=== PATIENT | female | born 1945 | race Caucasian/White ===

== ENCOUNTER 2016-12-19 07:51 | Inpatient (IN) | payer MEDICARE, BC ==
--- NOTE | ~2016-12-19 | HP ---
History And Physical [place] [id number] [facility] [place]. [address] NAME: FATIMAH DURAND : 41 STATUS : ADM Katia PAT#: [id number] AGE: 71 ADM/REG DATE : 12/19/16 MR#: [id number] REPORT SERV DATE: 12/19/16 DICTATED BY: UMER GARRETT DATE: 12/19/16 REPORT STATUS : Draft TRANSCRIBED BY: MODL DATE: 12/19/16 DATE OF ADMISSION: 12/19/2016 ADMISSION DIAGNOSIS: Unstable angina. HISTORY OF PRESENT ILLNESS: Ms. Durand is a very pleasant 71-year-old female, who presented to the emergency room this morning for evaluation of chest discomfort and diaphoresis. She has a cardiovascular history notable for coronary heart disease with prior CABG in 2003, performed by Dr. Connelly. She has been under the care of Dr. Clay Toussaint and has had subsequent heart catheterizations, but no prior stents. Her last heart catheterization was in 2013, at which time, all grafts were demonstrated to be patent with severe [place] coronary artery disease that was not amenable to revascularization. She also has a history of aortic stenosis, previously assessed to be moderate in severity. She had actually made an appointment to transition her care to the [facility] after her previous Cardiology left his practice and was awaiting her initial visit later this month. She was in her usual state of health until early this morning when she woke up with tightness in her chest, severe diaphoresis, and shortness of breath. She described as a pressure in the center of her chest and it involved her left arm. She presented to the ER where nitroglycerin relieved her pain. At the time of my evaluation, her chest discomfort is resolved. She denies any symptoms of stable angina prior to this, but admits that she is not very active. She denies any recent palpitations, presyncope/syncope. At the time my evaluation, she has no additional complaints. PAST MEDICAL HISTORY: 1. Coronary artery disease, status post 4-vessel CABG in 2003. Heart catheterization in 2013 demonstrated all grafts to be patent although PRIEST-LAD was not selectively engaged. 2. Aortic stenosis, moderate by previous echo. 3. Diabetes-insulin dependent. 4. Depression. 5. History of cataracts. MEDICAL CARE TEAM: PCP is Dr. Mloina. 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 Also sees an digital forensics examiner for her cataracts. MEDICATIONS: Reviewed per medical record. FAMILY HISTORY: Noncontributory. SOCIAL HISTORY: The patient is a lifelong nonsmoker. She does not use alcohol or illicit drugs. ALLERGIES: DOCUMENTED ALLERGY TO SULFA, CODEINE, ATENOLOL, AND ALTACE. History And Physical [address] [address] NAME: FATIMAH DURAND : 41 STATUS : ADM Katia PAT#: [id number] AGE: 71 ADM/REG DATE : 12/19/16 MR#: [id number] REPORT SERV DATE: 12/19/16 DICTATED BY: UMER GARRETT DATE: 12/19/16 REPORT STATUS : Draft TRANSCRIBED BY: MELISSA DATE: 12/19/16 REVIEW OF SYSTEMS: Per HPI. Otherwise, negative. PHYSICAL EXAMINATION: VITAL SIGNS: Blood pressure 122/74, pulse 76, respiratory rate 16, and temperature 97.2. GENERAL: Obese female, appears comfortable, well-nourished, in no apparent distress. HEENT: Sclerae anicteric. Mucous membranes are moist. NECK: Supple. CARDIOVASCULAR: Regular rhythm is present. A 3/6 systolic murmur is present with distinct S2. This murmur radiates to her carotids bilaterally. PULMONARY: Clear to auscultation laterally but unable to auscultate in the posterior lung lambert as the patient became extremely dyspneic with a coughing fit while sitting up. ABDOMEN: Soft. Nontender. EXTREMITIES: Warm without edema. LABS: Hemoglobin 12.7, hematocrit 40.6, platelets 199, WBC 8.6, INR 1.1. Sodium 143, potassium 3.9, chloride 106, bicarb 32, BUN 14, creatinine 0.75. Troponin 0.05. LFTs within normal limits. BNP 354. Chest x-ray demonstrates cardiomegaly, median sternotomy, consistent with prior CABG, and interstitial thickening in the lung field bases. EKG demonstrates sinus rhythm with nonspecific ST-segment abnormality. IMPRESSION/RECOMMENDATIONS: 1. Chest discomfort at rest in the setting of coronary heart disease with clinical features suggestive of unstable angina. 2. Coronary heart disease with prior 4-vessel CABG. 3. Aortic stenosis, moderate. 4. Heart failure with preserved ejection fraction, acute on chronic, mild congestion. The patient has been started on heparin, given suspicion for ACS. Her clinical features and her recent stress test as an outpatient warrant an invasive evaluation. I have recommended heart catheterization to be performed later this afternoon if feasible. She is fortunately more comfortable after initial antianginal treatment. I will request an echocardiogram to assess the severity of aortic stenosis. We will consider right heart catheterization to further evaluate if it is borderline severe. Further recommendations pending initial clinical course. VIANNEY/MELISSA Umer Garrett MD / [id number] CC: MD Bill Frankel M.D.
[~2016-12-19 07:51] MED LIST: ASAB PO; CIP5 PO; COREG3 PO; CORTISONE INJECTION IM; DSS PO; HUMULIN SC; IMDUR30 PO; INVOKANA100 MG PO; LEXAPRO10 PO; LIOR10 PO; LIPITOR20 PO; LIPITOR40 PO; LOTENSIN HCT1 TA1 PO; LOTENSIN HCT1 TA3 PO; MOBIC7.5 PO; NEUR300 PO; NOVOPENMIX SC; PLAVIX PO; REFRESH OP; STOOL SOFTEN240 MG PO; ZOCOR20 PO
[2016-12-19 07:58] LABS: BASOPHILS 0.3 %; BASOPHILS ABSOLUTE 0.03 10/3/uL (0.0-0.16); EOSINOPHILS 0.1 %; EOSINOPHILS ABSOLUTE 0.01 10/3/uL (0.0-0.53); ER CBC TAT 0 Hrs 03 Mins; HEMATOCRIT 40.6 % (36.0-48.0); HEMOGLOBIN 12.7 g/dL (12.0-16.0); IMMATURE GRANULOCYTES 0.5 %; IMMATURE GRANULOCYTES ABSOLUTE 0.04 10/3/uL (0.0-0.11); LYMPHOCYTES 12.4 %; LYMPHOCYTES ABSOLUTE 1.07 10/3/uL (0.67-4.30); MEAN CORPUS HGB CONC 31.3 g/dL (32.0-36.0); MEAN CORPUSCULAR HEMOGLOB 27.3 pg (26.0-34.0); MEAN CORPUSCULAR VOLUME 87.3 fL (80-100); MEAN PLATELET VOLUME 12.3 fL (9.2-13.0); MONOCYTES 6.9 %; MONOCYTES ABSOLUTE 0.59 10/3/uL (0.21-1.20); NEUTROPHILS 79.8 %; NEUTROPHILS ABSOLUTE 6.87 10/3/uL (2.02-8.40); PLATELET COUNT 199 10/3/uL (150-400); RBC DISTRIBUTION WIDTH 14.9 % (12.0-16.0); RED CELL COUNT 4.65 10/6/uL (4.0-5.6); WHITE BLOOD CELLS 8.6 10/3/uL (4.5-10.5)
[2016-12-19 08:02] LABS: MANUAL DIFF NO %
[2016-12-19 08:07] LABS: INTERNATIONAL NORMAL RATI 1.1 UNITS (-); PROTIME (NOT ORD) 13.9 SEC (12.0-14.5)
[2016-12-19 08:16] LABS: ALBUMIN 3.2 G/DL (3.5-5.0); ALKALINE PHOSPHATASE 61 U/L (45-117); BUN (BLOOD UREA NITROGEN) 14 MG/DL (6-23); CALCIUM, SERUM 9.1 MG/DL (8.5-10.4); CHLORIDE, SERUM 106 MMOL/L (96-112); CO2 (CARBON DIOXIDE) 32 MMOL/L (24-34); CREATININE 0.75 MG/DL (0.55-1.02); DIRECT BILIRUBIN 0.1 MG/DL (0.0-0.4); GFR AFRICAN AMERICAN 92 ML/MIN (>=60); GFR NON AFRICAN AMERICAN 79 ML/MIN (>=60); INDIRECT BILIRUBIN(NOT ORDER) 0.5 MG/DL (0.1-0.9); POTASSIUM, SERUM 3.9 MMOL/L (3.5-5.3); SGPT(ALT) 30 U/L (5-65); SODIUM, SERUM 143 MMOL/L (135-148); TOTAL BILIRUBIN 0.6 MG/DL (0-1.2); TOTAL PROTEIN 6.9 G/DL (6.0-8.5)
[2016-12-19 08:18] LABS: CHEST PAIN PROFILE TAT 0 Hrs 23 Mins; GLUCOSE, SERUM 87 MG/DL (60-99); TROPONIN I 0.05 NG/ML (<0.05)
[2016-12-19 08:19] LABS: SGOT(AST) 34 U/L (5-40)
[2016-12-19] MEDS ORDERED: LOTENSIN HCT1 TA3 PO (09:03)
[2016-12-19] MEDS ORDERED: LEXAPRO10 PO (09:03)
[2016-12-19] MEDS ORDERED: BIST PO (09:04)
[2016-12-19] MEDS ORDERED: ASAB PO (09:04)
[2016-12-19] MEDS ORDERED: IMDUR30 PO (09:04)
[2016-12-19] MEDS ORDERED: LIPITOR20 PO (09:04)
[2016-12-19] MEDS ORDERED: COREG3 PO (09:04)
[2016-12-19] MEDS ORDERED: NOVOPENMIX SC (09:05)
[2016-12-19] MEDS ORDERED: GLUCPH PO (09:06)
[2016-12-19] MEDS ORDERED: PROBIOTIC PO (09:06)
[2016-12-19] MEDS ORDERED: LIQUID TEARS OPH (09:06)
[2016-12-19 13:10] LABS: CHOLESTEROL 121 MG/DL (< 200)
[2016-12-19 13:11] LABS: CHOL/HDL RATIO(NOT ORDER) 2.2 (0-5); HDL CHOLESTEROL 56 MG/DL (> 49); LDL CHOLESTEROL 53 MG/DL (< 130); NON-HDL CHOLESTEROL 65 MG/DL (< 160); TRIGLYCERIDE 60 MG/DL (< 150)
[2016-12-20 04:06] LABS: BASOPHILS 0.3 %; BASOPHILS ABSOLUTE 0.02 10/3/uL (0.0-0.16); EOSINOPHILS 1.5 %; HEMATOCRIT 38.2 % (36.0-48.0); HEMOGLOBIN 11.9 g/dL (12.0-16.0); IMMATURE GRANULOCYTES 0.1 %; IMMATURE GRANULOCYTES ABSOLUTE 0.01 10/3/uL (0.0-0.11); LYMPHOCYTES 20.7 %; LYMPHOCYTES ABSOLUTE 1.41 10/3/uL (0.67-4.30); MEAN CORPUS HGB CONC 31.2 g/dL (32.0-36.0); MEAN CORPUSCULAR HEMOGLOB 27.2 pg (26.0-34.0); MEAN CORPUSCULAR VOLUME 87.4 fL (80-100); MEAN PLATELET VOLUME 12.2 fL (9.2-13.0); MONOCYTES 9.6 %; MONOCYTES ABSOLUTE 0.65 10/3/uL (0.21-1.20); NEUTROPHILS 67.8 %; NEUTROPHILS ABSOLUTE 4.61 10/3/uL (2.02-8.40); PLATELET COUNT 179 10/3/uL (150-400); RBC DISTRIBUTION WIDTH 15.2 % (12.0-16.0); RED CELL COUNT 4.37 10/6/uL (4.0-5.6); WHITE BLOOD CELLS 6.8 10/3/uL (4.5-10.5)
[2016-12-20 04:07] LABS: MANUAL DIFF NO %
[2016-12-20 04:18] LABS: BUN (BLOOD UREA NITROGEN) 15 MG/DL (6-23); CALCIUM, SERUM 8.5 MG/DL (8.5-10.4); CHLORIDE, SERUM 106 MMOL/L (96-112); CO2 (CARBON DIOXIDE) 30 MMOL/L (24-34); CREATININE 0.85 MG/DL (0.55-1.02); GFR AFRICAN AMERICAN 79 ML/MIN (>=60); GFR NON AFRICAN AMERICAN 68 ML/MIN (>=60); POTASSIUM, SERUM 3.9 MMOL/L (3.5-5.3); SGPT(ALT) 26 U/L (5-65); SODIUM, SERUM 145 MMOL/L (135-148)
[2016-12-20 04:20] LABS: GLUCOSE, SERUM 169 MG/DL (60-99)
[2016-12-20] MEDS ORDERED: COZ25 PO (15:28)
[2016-12-20] MEDS ORDERED: BUM1 PO (15:33)
[2016-12-21 04:54] LABS: BUN (BLOOD UREA NITROGEN) 17 MG/DL (6-23); CALCIUM, SERUM 8.9 MG/DL (8.5-10.4); CHLORIDE, SERUM 100 MMOL/L (96-112); CO2 (CARBON DIOXIDE) 35 MMOL/L (24-34); CREATININE 0.79 MG/DL (0.55-1.02); GFR AFRICAN AMERICAN 86 ML/MIN (>=60); GFR NON AFRICAN AMERICAN 74 ML/MIN (>=60); GLUCOSE, SERUM 184 MG/DL (60-99); POTASSIUM, SERUM 3.8 MMOL/L (3.5-5.3); SODIUM, SERUM 142 MMOL/L (135-148)
[2016-12-21 16:11] LABS: CALCIUM, SERUM 9.1 MG/DL (8.5-10.4); CHLORIDE, SERUM 98 MMOL/L (96-112); CO2 (CARBON DIOXIDE) 38 MMOL/L (24-34); CREATININE 0.97 MG/DL (0.55-1.02); GFR AFRICAN AMERICAN 67 ML/MIN (>=60); GFR NON AFRICAN AMERICAN 58 ML/MIN (>=60); GLUCOSE, SERUM 220 MG/DL (60-99); POTASSIUM, SERUM 4.2 MMOL/L (3.5-5.3); SODIUM, SERUM 138 MMOL/L (135-148)
[2016-12-21 16:12] LABS: BUN (BLOOD UREA NITROGEN) 21 MG/DL (6-23)
[2016-12-22 04:06] LABS: CALCIUM, SERUM 9.2 MG/DL (8.5-10.4); CHLORIDE, SERUM 97 MMOL/L (96-112); CREATININE 0.98 MG/DL (0.55-1.02); GFR AFRICAN AMERICAN 66 ML/MIN (>=60); GFR NON AFRICAN AMERICAN 57 ML/MIN (>=60); POTASSIUM, SERUM 4.3 MMOL/L (3.5-5.3); SODIUM, SERUM 140 MMOL/L (135-148)
[2016-12-22 04:09] LABS: BUN (BLOOD UREA NITROGEN) 26 MG/DL (6-23); GLUCOSE, SERUM 271 MG/DL (60-99)
[2016-12-22 04:11] LABS: CO2 (CARBON DIOXIDE) 41 MMOL/L (24-34)
[2016-12-22] MEDS ORDERED: BUM1 PO (14:24)
[2016-12-22] MEDS ORDERED: KLOR-CON M2020 MEQ PO (14:26)
[2016-12-22] MEDS ORDERED: COREG6 PO (14:27)
== END 2016-12-22 17:20 | disposition home or self-care (01) | DRG 286 ==
LOC: ER 07:51 → CDU1 09:44
PROVIDERS: Internal Medicine Cardiovascular Disease; Nurse Practitioner
PROC: 4A023N8 Measurement of Cardiac Sampling and Pressure, Bilateral, Percutaneous Approach (ICD-10-PCS; principal; 2016-12-19)
PROC: B2111ZZ Fluoroscopy of Multiple Coronary Arteries using Low Osmolar Contrast (ICD-10-PCS; 2016-12-19)
PROC: B2181ZZ Fluoroscopy of Left Internal Mammary Bypass Graft using Low Osmolar Contrast (ICD-10-PCS; 2016-12-19)
PROC: B2131ZZ Fluoroscopy of Multiple Coronary Artery Bypass Grafts using Low Osmolar Contrast (ICD-10-PCS; 2016-12-19)
PROC: B2151ZZ Fluoroscopy of Left Heart using Low Osmolar Contrast (ICD-10-PCS; 2016-12-19)
PROC: B3101ZZ Fluoroscopy of Thoracic Aorta using Low Osmolar Contrast (ICD-10-PCS; 2016-12-19)
DX: I25.110 Atherosclerotic heart disease of native coronary artery with unstable angina pectoris (principal); I50.33 Acute on chronic diastolic (congestive) heart failure; I27.2 Other secondary pulmonary hypertension; J44.9 Chronic obstructive pulmonary disease, unspecified; I11.0 Hypertensive heart disease with heart failure; I08.0 Rheumatic disorders of both mitral and aortic valves; Z88.2 Allergy status to sulfonamides; Z88.8 Allergy status to other drugs, medicaments and biological substances; E11.9 Type 2 diabetes mellitus without complications; R09.02 Hypoxemia; Z79.4 Long term (current) use of insulin
CPT/HCPCS: 71010; 80048; 80061; 80076; 82803; 82962; 83690; 83735; 83880; 84460; 84484; 85025; 85610; 85730; 93005; 93461; 96374; 96375; 99152; 99153; 99285; A9270-GY; C1751; C1760; C1769; C1894; C8929; J2250; J2405; J3010; Q9957; Q9967